=== PATIENT | male | born 1965 | race Caucasian/White ===

== ENCOUNTER 2019-03-05 07:14 | Day surgery (SDC) | payer MEDICARE, OTHER ==
[~2019-03-05 07:14] MED LIST: DIPHENHYDRAMINE HCL 50 MG/ML VIAL ONE; EPINEPHRINE INJ 1 MG/10 ML DISP.SYRIN ONE; FLUMAZENIL INJ 0.5 MG/5 ML VIAL ONE; GLUCAGON,HUMAN RECOMB 1 MG INJ ONE; NALOXONE HCL INJ/PF 0.4 MG/1 ML SDV ONE; ONDANSETRON HCL INJ/PF 4 MG/2 ML SDV ONE
[2019-03-05] MEDS: MIDAZOLAM 2 MG/2 ML INJ ONE ×4 (07:54→08:02)
[2019-03-05] MEDS: FENTANYL CITRATE INJ/PF 100 MCG/2 ML AMPUL ONE ×4 (07:54→08:04)
--- NOTE | 2019-03-05 08:29 | Operative Report ---
Nonrecallable Operative Report DATE OF SURGERY: 03/05/19 PREOPERATIVE DIAGNOSIS: hx of rectal cancer POSTOPERATIVE DIAGNOSIS: hx of rectal cancer OPERATION: screening colonoscopy SURGEON: NICHO RODRIGUEZ ANESTHESIA: Moderate Sedation TISSUE REMOVED OR ALTERED: none COMPLICATIONS: none ESTIMATED BLOOD LOSS: 0 INTRAOPERATIVE FINDINGS: see note PROCEDURE: Mr. 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 He is received chemotherapy. He is here today for a screening colonoscopy 5 years after his APR. Patient was brought to the endoscopy suite awake and alert stable condition appropriate site verification and timeout was obtained and procedure commenced. The Olympus colonoscope was passed into the stoma on the left side and we were able to traverse the abdominal fascia into the distal colon. We manipulated the scope up past the splenic flexure through the transverse colon hepatic flexure ascending colon to the cecum. We identified the ileocecal valve and the cecum. We slowly withdrew the scope and examined all mucosal surfaces cecum ascending colon hepatic flexure transverse colon splenic flexure descending colon out the stoma there is no evidence of any polyps mucosal abnormalities or diverticulosis. Findings normal colonoscopy. Patient should have a repeat colonoscopy in 3 years.
--- NOTE | 2019-03-05 08:30 | Discharge Summary ---
Discharge Summary (SDC) - Discharge Final Diagnosis: Screening colonoscopy Date of Surgery: 03/05/19 Discharge Date: 03/05/19 Condition: Good Discharge Diet: As Tolerated Discharge Activity: Activity As Tolerated Report the Following to Your Physician Immediately: Increase in Pain - Patient can follow-up in surgical clinic as needed should follow-up with his primary MD., Unusual Bleeding
[2019-03-05 09:20] VITALS: BP 112/76
== END 2019-03-05 09:20 | disposition home or self-care (01) ==
LOC: END 07:14
PROVIDERS: ATTEND Surgery
DX: Z12.11 Encounter for screening for malignant neoplasm of colon (principal); Z85.048 Personal history of other malignant neoplasm of rectum, rectosigmoid junction, and anus; Z93.3 Colostomy status; Z86.718 Personal history of other venous thrombosis and embolism; I10 Essential (primary) hypertension; Z86.79 Personal history of other diseases of the circulatory system; Z79.899 Other long term (current) drug therapy
CPT/HCPCS: 44388; J2250; J1200; J3010; J1642; J0171; J1610; J2310; J2405; J3490